=== PATIENT | female | born 1950 | race Caucasian/White ===

== ENCOUNTER 2017-09-26 11:21 | Day surgery (SDC) | payer OTHER ==
[~2017-09-26 11:21] MED LIST: ADVIL,NUPRIN,M200 MG PO; ALLEGRA60 MG PO; ETHYL CHLORI103.5 ML TP; PENICILLIN PO; PLAVIX75 MG PO
[2017-09-26 12:35] LABS: POINT-OF-CARE METER ID UU13113696
[2017-09-26 13:51] LABS: METH RESISTANT S AUREUS PCR NEGATIVE (NEGATIVE); PROBE CHECK PASS; SPECIMEN PROCESSING CONTROL PASS
== END 2017-09-26 14:10 | disposition home or self-care (01) ==
LOC: CATH 11:21
PROVIDERS: Surgery
DX: T82.868A Thrombosis due to vascular prosthetic devices, implants and grafts, initial encounter (principal); T82.858A Stenosis of other vascular prosthetic devices, implants and grafts, initial encounter; N17.9 Acute kidney failure, unspecified; Z99.2 Dependence on renal dialysis; Y83.2 Surgical operation with anastomosis, bypass or graft as the cause of abnormal reaction of the patient, or of later complication, without mention of misadventure at the time of the procedure
CPT/HCPCS: 82948; 87641; C1725; C1757; C1769; C1874; C1894; C2628; J0690; J1644; J2250; J3010; S0020